=== PATIENT | male | born 1935 | race Caucasian/White ===

== ENCOUNTER 2018-06-16 14:25 | Inpatient (IN) | payer MEDICARE, OTHER ==
[~2018-06-16] VITALS: Ht 170.2 cm; Wt 74.9 kg
[2018-06-16] MEDS ORDERED: SODIUM CHLORIDE FLUSH 10ML SYR IVF ONE ×3 (15:00→16:00)
[2018-06-16] MEDS ORDERED: [UNRECOGNIZED DRUG - CODE] IM (15:11)
[2018-06-16 15:23] LABS: ALANINE AMINOTRANSFERASE 33 U/L (12-78); ANION GAP 2 mmol/L (5-15); CALCIUM 8.4 mg/dL (8.5-10.1); CHLORIDE 111 mmol/L (98-107); CREATININE 1.05 mg/dL (0.7-1.3)
[2018-06-16 15:25] LABS: INTERNATIONAL NORMALIZED RATIO 1.13 (0.93-1.1); PROTHROMBIN TIME 11.8 Seconds (9.6-11.5)
[2018-06-16 15:28] LABS: ALKALINE PHOSPHATASE 64 U/L (45-117); FREE T4 (FREE THYROXINE) 0.98 ng/dL (0.76-1.46); TOTAL PROTEIN 6.8 g/dL (6.4-8.2)
[2018-06-16 15:30] LABS: TROPONIN I 0.203 ng/mL (0.000-0.045)
--- NOTE | 2018-06-16 15:42 | NUR ---
Pt presents for palpitations intermittently x 2 days. Pt in afib on ECG. denies CP. No SOB. Pt NAD at this time.
[2018-06-16] MEDS ORDERED: ASPIRIN 81 MG TABLET CHEW ONE (15:52)
[2018-06-16] MEDS ORDERED: DILTIAZEM 5 MG/ML, 10ML ONE (15:53)
[2018-06-16] MEDS ORDERED: DILTIAZEM 5 MG/ML, 5ML IV ONE (16:00)
[2018-06-16] MEDS ORDERED: ASPIRIN 81 MG TABLET CHEW PO ONE (16:00)
[2018-06-16 16:02] LABS: MD YES; MEAN CORPUSCULAR HEMOGLOBIN 32.9 pg (27.5-34.5); MEAN CORPUSCULAR HGB CONC 31.7 g/dL (33.2-36.2); MEAN CORPUSCULAR VOLUME 103.9 fL (81-97); MEAN PLATELET VOLUME 10.6 fL (7.4-10.4); PLATELET COUNT 302 x10^3/uL (130-400); RED BLOOD COUNT 2.39 x10^6/uL (4.38-5.82); RED CELL DISTRIBUTION WIDTH 32.9 % (9.4-14.8)
[2018-06-16 16:09] LABS: EOS#(MANUAL) 0.05 x10^3/uL (0.0-0.4); EOS% (MANUAL) 1 % (1-7); LYMPH#(MANUAL) 1.03 x10^3/uL (1-3.4); LYMPHS% (MANUAL) 22 % (22-44); METAMYELOCYTES# (MANUAL) 0.05 x10^3/uL (0-0); METAMYELOCYTES% (MANUAL) 1 % (0-1); MONOS#(MANUAL) 0.47 x10^3/uL (0.3-2.7); MONOS% (MANUAL) 10 % (2-9); NRBC % (MANUAL) 1 % (0-1); REACTIVE LYMPHS # (MANUAL) 0.09 x10^3/uL (0-0); REACTIVE LYMPHS % (MANUAL) 2 % (0-0); SEG#(MANUAL) 2.68 x10^3/uL (1.8-6.8); SEGS% (MANUAL) 57 % (42-75)
[2018-06-16 16:10] LABS: ANISOCYTOSIS 2+; BAND#(MANUAL) 0.33 x10^3/uL; BANDS%(MANUAL) 7 % (0-7)
[2018-06-16 16:12] LABS: ACANTHOCYTES 1+; HYPOCHROMIA 1+; MICROCYTOSIS 1+; OVALOCYTES 1+; POLYCHROMASIA 1+; SCHISTOCYTES 1+
[2018-06-16 16:13] LABS: BASOPHILLIC STIPPLING 1+; TEAR DROPS 1+
[2018-06-16 16:14] LABS: <PLATELET ESTIMATE> ADEQUATE; LARGE PLATELETS 1+
[2018-06-16] MEDS ORDERED: HEPARIN 5,000 UNITS/ML, 1ML ONE (16:15)
[2018-06-16] MEDS ORDERED: HEPARIN 25,000 UNITS/500ML PMX 500 ML ONE (16:15)
[2018-06-16] MEDS ORDERED: ACETAMINOPHEN 325 MG TABLET PO PRN (16:30)
[2018-06-16] MEDS ORDERED: GUAIFENESIN/DM 200-20MG, 10ML UDC PO PRN (16:30)
[2018-06-16] MEDS ORDERED: HEPARIN 25,000 UNITS/500ML PMX 500 ML IV PRN (16:30)
[2018-06-16] MEDS ORDERED: morphine SULFATE 10 MG/ML, 1ML IVPush PRN (16:30)
[2018-06-16] MEDS ORDERED: TEMAZEPAM 15 MG CAPSULE PO PRN (16:30)
[2018-06-16] MEDS ORDERED: HEPARIN 5,000 UNITS/ML, 1ML IV ONE (16:30)
[2018-06-16] MEDS ORDERED: DOCUSATE 100 MG CAPSULE PO PRN (16:30)
[2018-06-16 17:04] LABS: TROPONIN I 0.229 ng/mL (0.000-0.045)
[2018-06-16] MEDS ORDERED: METOPROLOL TARTRATE 25 MG TABLET ONE (18:44)
[2018-06-16 18:46] VITALS: BP 124/65
[2018-06-16] MEDS: METOPROLOL TARTRATE 25 MG TABLET PO SCH (18:48)
[2018-06-16 19:32] VITALS: BP 103/77
[2018-06-16] MEDS: SODIUM CHLORIDE FLUSH 10ML SYR IVF SCH (22:19)
[2018-06-16 22:28] LABS: TROPONIN I 0.242 ng/mL (0.000-0.045)
[2018-06-16] MEDS: HEPARIN 5,000 UNITS/ML, 1ML IV PRN (23:10)
[2018-06-17 01:06] VITALS: BP 108/65
[2018-06-17] MEDS: METOPROLOL TARTRATE 25 MG TABLET PO SCH (05:50)
[2018-06-17] MEDS: HEPARIN 5,000 UNITS/ML, 1ML IV PRN ×2 (05:50→12:24)
[2018-06-17 05:53] VITALS: BP 111/67
[2018-06-17] MEDS ORDERED: REGADENOSON 0.4 MG/5 ML SYRINGE ONE (08:36)
[2018-06-17] MEDS: SODIUM CHLORIDE FLUSH 10ML SYR IVF SCH (08:37)
[2018-06-17 09:59] VITALS: BP 108/70
[2018-06-17] MEDS ORDERED: METO25TA35 PO (13:44)
[2018-06-17] MEDS ORDERED: APIX5TAB PO (13:44)
[2018-06-17] MEDS ORDERED: APIXABAN 5 MG TABLET PO SCH ×2 (14:00→21:00)
== END 2018-06-17 15:26 | disposition home or self-care (01) | DRG 281 ==
LOC: ED 16:01 → EDIP 16:02 → ED 16:23 → 5SO 18:31 → DCLOUNGE 06-17 15:11
PROVIDERS: ADMIT Internal Medicine; ATTEND Internal Medicine
DX: I21.4 Non-ST elevation (NSTEMI) myocardial infarction (principal); C94.6 Myelodysplastic disease, not elsewhere classified; I48.91 Unspecified atrial fibrillation; D63.8 Anemia in other chronic diseases classified elsewhere; J06.9 Acute upper respiratory infection, unspecified; J40 Bronchitis, not specified as acute or chronic; Z79.01 Long term (current) use of anticoagulants; Z80.52 Family history of malignant neoplasm of bladder; Z82.3 Family history of stroke; Z83.3 Family history of diabetes mellitus; Z85.810 Personal history of malignant neoplasm of tongue
CPT/HCPCS: 36415; 71045; 78452; 80053; 83735; 83880; 84439; 84443; 84484; 85025; 85520; 85610; 85730; 90656; 93005; 93017; 93306; 96374; 99291; G0378; J1644; J2785; A9502; C9898

== ENCOUNTER 2020-10-04 14:26 | Outpatient (CLI) | payer MEDICARE, OTHER ==
[~2020-10-04 14:26] MED LIST: APIX5TAB PO; METO25TA35 PO; [UNRECOGNIZED DRUG - CODE] IM
== END 2020-10-04 23:59 | disposition home or self-care (01) ==
LOC: CVU 14:26
PROVIDERS: ATTEND Internal Medicine Cardiovascular Disease
DX: I08.2 Rheumatic disorders of both aortic and tricuspid valves (principal); I48.91 Unspecified atrial fibrillation
CPT/HCPCS: 93306; 93356

== ENCOUNTER 2020-12-09 08:14 | Emergency (ER) | payer MEDICARE, OTHER ==
[~2020-12-09] VITALS: Ht 170.2 cm; Wt 74.3 kg
--- NOTE | 2020-12-09 08:34 | NUR ---
PATIENT ARRIVES STATING NEW ONSET AFIB. PATIENT HAS BEEN IN AFIB ONCE BEFORE THREE YEARS AGO AND STAYED OVERNIGHT. HE TAKES 25 MG METOPROLOL AND ASPRIN DAILY.
[2020-12-09] MEDS ORDERED: ASPI-963 PO (08:40)
[2020-12-09] MEDS ORDERED: SODIUM CHLORIDE FLUSH 10ML SYR IVF ONE (09:00)
[2020-12-09] MEDS ORDERED: APIXABAN 5 MG TABLET PO ONE (09:18)
[2020-12-09] MEDS ORDERED: PROPOFOL 10 MG/ML, 20ML IVPush ONE (09:30)
[2020-12-09 09:39] LABS: BASOPHILS % (AUTO) 1 % (0-1); EOSINOPHILS % (AUTO) 2 % (1-7); LYMPHOCYTES % (AUTO) 13 % (22-44); MEAN CORPUSCULAR HEMOGLOBIN 33.3 pg (27.5-34.5); MEAN CORPUSCULAR HGB CONC 32.6 g/dL (33.2-36.2); MEAN PLATELET VOLUME 11.1 fL (7.4-10.4); MONOCYTES % (AUTO) 13 % (2-9); NEUTROPHILS % (AUTO) 72 % (42-75); PLATELET COUNT 297 x10^3/uL (130-400); RED BLOOD COUNT 2.93 x10^6/uL (4.38-5.82); RED CELL DISTRIBUTION WIDTH 29.7 % (9.4-14.8)
[2020-12-09 09:44] LABS: ALANINE AMINOTRANSFERASE 17 U/L (12-78); ALBUMIN 3.9 g/dL (3.4-5.0); ANION GAP 5 mmol/L (5-15); CALCIUM 8.7 mg/dL (8.5-10.1); CHLORIDE 110 mmol/L (98-107)
[2020-12-09] MEDS ORDERED: PROPOFOL 10 MG/ML, 20ML ONE (09:48)
[2020-12-09] MEDS ORDERED: APIXABAN 5 MG TABLET ONE (09:48)
[2020-12-09 09:49] LABS: ALKALINE PHOSPHATASE 57 U/L (45-117); BILIRUBIN,TOTAL 1.4 mg/dL (0.2-1.0); CREATININE 0.78 mg/dL (0.7-1.3); TROPONIN I < 0.015 ng/mL (0.000-0.045)
[2020-12-09 10:26] LABS: <PLATELET ESTIMATE> ADEQUATE; ANISOCYTOSIS 2+; HYPOCHROMIA 1+; LARGE PLATELETS 1+; MICROCYTOSIS 1+; OVALOCYTES 1+; TEAR DROPS 1+
--- NOTE | 2020-12-09 10:52 | NUR ---
ready for cardioversion, let md know
--- NOTE | 2020-12-09 11:01 | NUR ---
PATIENT PREPPED AND CONSENT SIGNED FOR PROCEDURE, PATIENT CALM AND READY
--- NOTE | 2020-12-09 11:05 | NUR ---
PATIENT SCHEDULED NOW FOR CARDIOVERSION. SEE PAPER CHARTING ON SEDATION ASSESSMENT.
--- NOTE | 2020-12-09 11:58 | NUR ---
CARDIOVERSION WITH MD YEUNG, SEE PAPER CHARTING [phone]
--- NOTE | 2020-12-09 12:04 | NUR ---
PATIENT GIVEN 50 MG PROPOFOL BY MD, PATIENT SHOCKED, CONVERTED, TOLERATED WELL, AND IS NOW RECOVERING WELL. HE IS TALKING ABOUT DENTAL STORIES, CALM
--- NOTE | 2020-12-09 12:40 | NUR ---
PATIENT AOX4 AND CALM. WAS HUNGRY GAVE HIM CRACKERS AND WATER, TOLERATING WELL. PATIENT STRONG ON FEET AND FEELS GREAT. SEDATION PAPERWORK AND STRIP PLACED IN CHART, AND DISCHARGE REVIEWED.
[2020-12-09 12:41] VITALS: BP 115/68
== END 2020-12-09 13:33 | disposition home or self-care (01) ==
LOC: ED 08:52
DX: I48.91 Unspecified atrial fibrillation (principal)
CPT/HCPCS: 36415; 71045; 80053; 84484; 85025; 92960; 93005; 99152